=== PATIENT | male | born 1970 | race Caucasian/White ===

== ENCOUNTER 2024-09-28 05:06 | Emergency (ER) | payer OTHER, SELFPAY ==
[2024-09-28] VITALS (9 sets, daily range): BP systolic 115–200; BP diastolic 76–180; BMI 26.4
[2024-09-28 05:47] LABS: % Basophils 0.8 % (0-2); % Immature Granulocytes 0.2 % (0-0.5); % Lymphocytes 27.8 % (20.5-51.1); % Monocytes 11.4 % (1.7-9.3); % Neutrophils 53.8 % (42.2-75.2); Absolute Eosinophils 0.3 10^3/uL (0-0.7); Absolute Lymphocytes 1.3 10^3/uL (1.2-3.4); Absolute Monocytes 0.6 10^3/uL (0.1-0.6); Absolute Neutrophils 2.6 10^3/uL (1.4-6.5); Hematocrit 44.1 % (39.0-52.0); Hemoglobin 15.9 g/dL (13.0-18.0); Mean Corp Hgb Conc. 36.1 g/dL (33.0-37.0); Mean Corpuscular Hgb 30.8 pg (27.0-31.0); Mean Corpuscular Volume 85.5 fL (80.0-94.0); Nucleated Red Blood Cells % 0 % (-); Platelet Count 278 10^3/uL (130-400); Red Blood Cell Count 5.16 10^6/uL (4.70-6.10); Red Cell Dist. Width 12.6 % (11.5-14.5); White Blood Cell Count 4.8 10^3/uL (4.8-10.8)
[2024-09-28 06:07] LABS: ALT (SGPT) 19 U/L (0-50); AST (SGOT) 21 U/L (17-59); Albumin 3.9 g/dl (3.5-5.0); Alkaline Phosphatase 72 U/L (38-126); Blood Urea Nitrogen 24 mg/dl (9-20); Calcium 8.4 mg/dl (8.4-10.2); Carbon Dioxide 23 mmol/L (22-30); Chloride 106 mmol/L (98-107); Estimated Creatinine Clearance 123 ml/min; Glucose 151 mg/dl (70-99); Sodium 137 mmol/L (135-145); Total Bilirubin 0.5 mg/dl (0.2-1.3); Total Protein 6.2 g/dl (6.3-8.2); eGFR > 60.00
[2024-09-28 06:19] LABS: Troponin I 0.025 ng/ml
[2024-09-28] MEDS: LOW STRENGTH ASPIRIN 324 MG PO (07:46)
[2024-09-28] MEDS: NITROSTAT (SUBLINGUAL) 0.4 MG SL (07:47)
--- NOTE | 2024-09-28 08:16 | ED.GENMED ---
History of Present Illness
General
Chief Complaint: Chest Pain
Source: patient and spouse
Exam Limitations: none
Time Seen by Provider: 09/28/24 06:01
Nursing documentation reviewed up to this point in time: agreed with
History of Present Illness
History of Present Illness:
Patient with history of hypertension on lisinopril and type 2 diabetes, presents to ED secondary to sudden onset of chest pain, which woke the patient from sleep at 4 AM this morning. Chest pain described as pressure, in the middle of his chest,
with radiation to back, without any alleviating or exacerbating factors. Patient also reports intermittent sensation of palpitations. Denies shortness of breath. Denies nausea or vomiting. Denies dizziness. Denies diaphoresis. Denies recent
travel or surgery. Denies leg pain or swelling. Denies smoking. Patient drinks alcohol occasionally on weekends. There is family history of heart disease, i.e. valvular disease, as well as DVT/PE, provoked by surgery. Denies recent illness.
Past History
Past History
ED Past Medical History: None
ED Past Surgical History: None
Social History
Tobacco: Non-smoker
Personal:
Living: with family
Review of Systems
Review of Systems
Allergies reviewed?: Yes
All Other Systems: ROS reviewed and negative except as documented in HPI and ROS
Constitutional: Reports no symptoms
EENT: Reports no symptoms
Respiratory: Reports no symptoms
Cardiac: Reports chest pain
ABD/GI: Reports no symptoms
: Reports no symptoms
Musculoskeletal: Reports no symptoms
Skin: Reports no symptoms
Neurological: Reports no symptoms
Phy Exam
Physical Exam
Physical Exam:
General: well nourished male, in no acute distress. afebrile.
Heent: nc/at. eomi
Lungs: cta
Heart: rrr. no murmur
Abd: soft and nontender.
Neuro: aao x 3. no focal neurological deficit.
Skin: no rash. warm to touch.
Ext: no edema.
Psych: pleasant and cooperative.
Scores
Heart Score for Chest Pain Patients
STEMI patient?: No
History: Slightly or Non-Suspicious
ECG: Normal
Age: >45 - <65 years
Risk Factors: 1 or 2 Risk Factors
Troponin: </= Normal Limit
Heart Score for Chest Pain Patients: 2
Heart Score Risk: 2.5% MACE over next 6 weeks
Course
Orders/Labs/Results
Orders:
Orders
09/28/24 05:07
Electrocardiogram (*1) Urgent
Reason for Study: Chest Pain
EKG- Treatment ONCE
09/28/24 05:22
Complete Blood Count/With Diff Urgent
Comprehensive Metabolic Panel Urgent
Magnesium Urgent
Comment: ADD ON
Troponin I Urgent
09/28/24 05:30
D-Dimer Urgent
09/28/24 05:31
Chest [CR Chest - 2 Views ] Urgent
Comment:
Reason For Exam: chest pain
09/28/24 07:43
Aspirin Chewable [Low Strength Aspirin] 324 mg .ROUTE .STK-MED ONE
Nitroglycerin Sublingual [Nitrostat (Sublingual)] 0.4 mg .ROUTE .STK-MED ONE
09/28/24 07:44
Aspirin Chewable [Low Strength Aspirin] 324 mg PO NOW STA
Nitroglycerin Sublingual [Nitrostat (Sublingual)] 0.4 mg SL NOW STA
09/28/24 07:46
Aspirin Chewable [Low Strength Aspirin] 324 mg PO NOW STA
09/28/24 07:47
Electrocardiogram (*1) Urgent
Reason for Study: Chest Pain
EKG- Treatment ONCE
Nitroglycerin Sublingual [Nitrostat (Sublingual)] 0.4 mg SL NOW STA
09/28/24 08:00
Add On- LAB Urgent
Tests Added?: magnesium
09/28/24 08:07
Troponin I Urgent
09/28/24 10:26
EKG- Treatment ONCE
09/28/24 10:54
Troponin I Urgent
09/28/24 11:00
Electrocardiogram (*1) Urgent
Reason for Study: Chest Pain
Abnormal Lab Results
09/28/24
05:22
Monocytes % 11.4 H %
(1.7-9.3)
BUN 24 H mg/dl
(9-20)
Glucose 151 H mg/dl
(70-99)
Total Protein 6.2 L g/dl
(6.3-8.2)
09/28/24 05:22
09/28/24 05:22
Vital Signs
Initial and Last Documented VS:
Initial Vital Signs
BP
129/85
09/28/24 05:12
Last Documented Vital Signs
Temp Pulse Resp BP Pulse Ox
97.9 F 72 16 116/97 93
09/28/24 05:28 09/28/24 12:00 09/28/24 08:00 09/28/24 11:00 09/28/24 12:00
MDM/Problems Addressed
MDM/Problems Addressed:
Patient with spontaneous resolution of presenting chest pain, during observation ED, along with unremarkable workup, including repeat troponin and EKG, along with stable vital signs. As such, after discussion, decision made to discharge patient
home at this time, with recommendation to follow-up with his lopper for an urgent outpatient evaluation. Pt referred to [facility] chest pain hotline. Advised return to ED immediately with recurrent chest pain. Patient and spouse expressed
understanding at time of discharge.
*Critical Care Note
Total Time (30-74mins, 75-104mins- exclusive of procedures): Not Applicable
ED Attending Note
-
Portions of this chart may have been created with voice recognition software.� Occasional wrong word or��sound alike� substitutions may have occurred due to the inherent limitations of voice recognition software.
Discharge Plan
Departure
Patient Disposition: Home (Routine Discharge)
Date of Disposition: 09/28/24
Time of Disposition: 12:36
Patient with high blood pressure during this ER visit?: Yes
Condition: Good
Discharge Problem:
Chest pain
Instructions: Chest Pain DCA Follow Up
Prescriptions:
No Action
lisinopril 10 MG tablet
10 mg PO DAILY
ibuprofen 800 MG tablet
400 mg PO Q4H
Referrals:
Dori Rendon PA [Family Provider] -
Chago Zapata MD [Active] -
Activity Restrictions/Additional Instructions:
As discussed, please follow-up with referred lopper for other evaluation and treatment. Please return to ED immediately with recurrent chest pain.
Interventions
Interventions:
*Risk Screen - Suicide Last Done: 09/28/24 05:10
*General Assessment Last Done: 09/28/24 05:27
*Neglect/Abuse Screening Last Done: 09/28/24 05:10
ED- Fall Risk Assessment Last Done: 09/28/24 05:38
*ED COVID-19 Vaccine History Last Done: 09/28/24 05:27
*Nursing Disposition Last Done: 09/28/24 12:41
ED- Cardiac Assessment Last Done: 09/28/24 05:38
Discharge Date and Time
Discharge Date/Time: 09/28/24 12:41
Print Language: JORDANIAN
[2024-09-28 08:31] LABS: D-Dimer < 0.27 ug/mlFEU (0.00-0.50)
[2024-09-28 08:50] LABS: Troponin I < 0.012 ng/ml
[2024-09-28 11:29] LABS: Troponin I < 0.012 ng/ml
== END 2024-09-28 12:41 | disposition home or self-care (01) ==
LOC: EMR 05:06
PROVIDERS: Student in an Organized Health Care Education/Training Program; EMERGENCY PHYSICIAN Emergency Medicine; FAMILY PHYSICIAN Physician Assistant Medical
DX: R07.89 Other chest pain (principal); E11.9 Type 2 diabetes mellitus without complications; I10 Essential (primary) hypertension; Z82.49 Family history of ischemic heart disease and other diseases of the circulatory system
CPT/HCPCS: 99283; 71046; 80053; 83735; 84484; 85025; 85379; 93005